=== PATIENT | female | born 1995 | race African-American/Black ===

== ENCOUNTER 2024-08-09 08:16 | Emergency (ER) | payer BC, SELFPAY ==
[2024-08-09 08:22] VITALS: BP 126/87; PULSE 48; PULSE 79; RESP 14; RESP 16; TEMP 36.4; O2SAT 100
--- OUTSIDE RECORDS SUMMARY | 2024-08-09 08:29 | XMS_ITS | Clinical Summary ---
Author Organization [facility] Address [address] [place] [id number] Care Team Providers Care Vacuum Pan Operator Name Role Phone Unavailable Primary Care Provider Unavailabl e Immunizations Immunization Administration Dates Next Due Covid-19, Mrna, Lnp-s, Pf, 30 Mcg/0.3 Ml Dose (P fizer) 11/27/2020,11/06/2020 Social History Tobacco Use Types Packs/Day Years Used Date Smoking Tobacco: Never Assessed Comments Unknown Sex and Gender Information Value Date Recorded Sex Assigned at Not on file Legal Sex Female 2:15 PM CDT Gender Identity Not on file Sexual Orientation Not on file Plan of Treatment Health Maintenance Due Date Last Done Comments Hepatitis C Virus (HCV) Screening 1995 Hepatitis B Immunization (3 of 3 - 3-dose series) 05/22/1996 03/27/1996, 1995 Influenza Immunization (#1) 2023 03/02/2011 SARS-COV-2 Immunization ( season) 2023 11/27/2020, 11/06/2020 Respiratory Syncytial Virus (RSV) Immunization (Adult) (1 - 1-dose 75+ series) 09/16/2070 DTaP/Tdap/Td Immunization Discontinued 2008, 12/15/1999, 01/05/1997, Additional history exists TdaP Immunization Completed 07/30/2008 Human Papillomavirus (HPV) Immunization Discontinued 07/31/2011, 11/27/2008, 07/30/2008 Meningococcal Immunization (ACWY) Completed 12/07/2011, 07/30/2008 Pneumococcal Immunization Combined Aged Out No longer eligible based on patient's age to complete this topic Rotavirus Immunization Aged Out No lo nger eligible based on patient's age to complete this topic
--- OUTSIDE RECORDS SUMMARY | 2024-08-09 08:29 | XMS_ITS | Referral Summary ---
Author Organization [facility] [address] [facility] Address [address] [place] [address] Care Team Providers Care Dry Wall Nailer Name Role Phone Hannah Winn Primary Care Provider [phone] Encounters Date Type Department Care Team Description 06/23/2024 Results Follow-Up [address] [phone] Hannah Winn PA 06/21/2024 3:00 PM CHIEF CONSTRUCTION INSPECTOR Office Visit [address] [address] Hannah Winn PA Encounter for routine gynecological examination with Papanicolaou smear of cervix (Primary Dx); Cervical cancer screening; Screening examination for STD (sexually transmitted disease); BMI 28.0-28.9,adult from Last 3 Months Allergies No known active allergies Medications No known medications Active Problems Problem Noted Date Diagnosed Date Screening examination for ST D (sexually transmitted disease) 07/02/2024 Assessment & Plan (07/02/2024 11:05 PM CDT): STD panel ordered for screening Cervical cancer screening 07/02/2024 Assessment & Plan (07/02/2024 11:06 PM CDT): Pap smear obtained today. Follow-up per current recommendations pending results Encounter for routine gyneco logical examination with Papanicolaou smear of cervix 07/02/2024 Assessment & Plan (07/02/2024 11:06 PM CDT): Encouraged healthy lifestyle, good nutrition and exercise. Encouraged Calcium and Vitamin D and weight bearing exercise for bone health. Reviewed immunizations Reviewed age appropirate screenings. BMI 28.0-28.9,adult 06/21/2024 Assessment & Plan (06/21/2024 3:11 PM CHIEF CONSTRUCTION INSPECTOR): BMI Follow-up includes: Discussed diet and exercising counseling. Resolved Problems Problem Noted Date Diagnosed Date Resolved Date Fatigue 03/20/2024 07/02/2024 Assessment & Plan (03/20/2024 8:49 PM CHIEF CONSTRUCTION INSPECTOR): Probably multifactorial. Check labs and followup to re-evaluate Diabetes mellitus screening 03/20/2024 07/02/2024 Assessment & Plan (03/20/2024 8:49 PM CHIEF CONSTRUCTION INSPECTOR): Check labs Skin lesion of chest wall 04/21/2023 Assessment & Plan (04/21/2023 11:23 PM CHIEF CONSTRUCTION INSPECTOR): Seems to be more cystic type lesion. It seems to be part of the chest wall just under the skin not part of breast tissue. Will start an antibiotic and see if that helps the symptoms resolve. She just had a procedure done with Dr. Mahmood in his on a cephalosporin so will go ahead and continue with this 1. Will see if her symptoms resolve. Recheck in a couple of weeks and has not resolved will need to consider imaging BMI 29.0-29.9,adult 03/15/2023 06/21/19 Assessment & Plan (03/20/2024 4:44 PM CHIEF CONSTRUCTION INSPECTOR): Weight/BMI is in healthy range. Continue healthy lifestyle to maintain. Assessment & Plan (04/14/2023 3:41 PM CHIEF CONSTRUCTION INSPECTOR): Weight/BMI is in healthy range. Continue healthy lifestyle to maintain. Assessment & Plan (03/15/2023 10:12 AM CHIEF CONSTRUCTION INSPECTOR): Weight/BMI is in healthy range. Continue healthy lifestyle to maintain. Nail abnormality 03/15/2023 03/20/2024 Assessment & Plan (03/15/2023 10:13 AM CHIEF CONSTRUCTION INSPECTOR): Patient with persistent nail abnormality. Unsure if it is fungus versus Pseudomonas versus other etiology. Recommend another opinion with Podiatry. Referral to Dr. Sandoval and Guillermo provided. Patient will call and set her own appointment as true referral as needed Annual physical exam 03/15/2023 025 Assessment & Plan (03/20/2024 8:49 PM CHIEF CONSTRUCTION INSPECTOR): Encouraged healthy lifestyle, good nutrition and exercise. Encouraged Calcium and Vitamin D and weight bearing exercise for bone health. Reviewed immunizations Reviewed age appropirate screenings. Will plan a Pap smear with cervical cancer screening in the next few months Assessment & Plan (03/15/2023 10:13 AM CHIEF CONSTRUCTION INSPECTOR): Encouraged healthy lifestyle, good nutrition and exercise. Encouraged Calcium and Vitamin D and weight bearing exercise for bone health. Reviewed immunizations Reviewed age appropirate screenings. Patient would like to have Pap smear done in our office. Will set her up in 3-4 months. 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 Knee laceration, left, initial encounter 10/25/2017 03/15/2023 Overview (10/26/2017): Added automatically from request for surgery [id number] Immunizations Immunization Administration Dates Next Due DTP 01/05/1997, 6,02/18/1996,11/21 DTaP 12/15/1999 HPV, Quadrivalent 07/31/2011,11/27/2008,07/31/19 09 Hep A, Pediatric 02/28/2004,02/12/2003 Hep B, Adolescent or Pediatric 1995 Hep B, Unspecified 03/27/1996 HiB 01/05/1997, 6,02/18/1996,11/21 IPV 12/15/1999 Influenza, Trivalent, Preser vative Free, Intramuscular 03/02/2011 Influenza, Unspecified 03/20/2024,2023(Deferred: Patient Refused),03/15/2023(Deferred: Patient Refused),04/26/2022(Deferred: Patient Refused),04/26/2021(Deferred: Patient Refused) MMR 12/15/1999,11/03/1996 Meningococcal MCV4P (Menactra) 12/07/2011,2008 Polio, Unspecified 01/05/1997, 6,02/18/1996,11/21 Tdap 09/24/2018,07/30/2008 Social History Tobacco Use Types Packs/Day Years Used Date Smoking Tobacco: Never Smokeless Tobacco: Never Alcohol Use Standard Drinks/Week Comments No 0 (1 standard drink = 0.6 oz pur e alcohol) AUDIT-C Answer Date Recorded Q1: How often do you have a drink containing alcohol? Never 03/20/2024 Q2: How many drinks containi ng alcohol do you have on a typical day when you are drinking? Patient does not drink Q3: How often do you have si x or more drinks on one occasion? Never 03/20/2024 PHQ-2 Answer Date Recorded PHQ-2 Total Score (If total score is 3 or more points, staff should administer the PHQ-9) 0 06/21/2024 Personal Safety Answer Date Recorded Have you ever been in or are you currently in a harmful physical or emotional relationship or is someone making you feel afraid or unsafe? Denies 07/13/2022 Comments No Sex and Gender Information Value Date Recorded Sex Assigned at Not on file Legal Sex Female 9:39 PM CHIEF CONSTRUCTION INSPECTOR Gender Identity Not on file Sexual Orientation Not on file Last Filed Vital Signs Vital Sign Reading Time Taken Comments Blood Pressure 102/72 06/21/2024 3:06 PM CHIEF CONSTRUCTION INSPECTOR Pulse 54 06/21/2024 3:06 PM CHIEF CONSTRUCTION INSPECTOR Temperature 37.2 C (99 F) 06/21/2024 3:06 PM CHIEF CONSTRUCTION INSPECTOR Respiratory Rate 18 07/13/2022 7:57 PM CDT Oxygen Saturation 99% 06/21/2024 3:06 PM CHIEF CONSTRUCTION INSPECTOR Inhaled Oxygen Concentration - - Weight 80.5 kg (177 lb 6.4 oz) 06/21/2024 3:06 P M CHIEF CONSTRUCTION INSPECTOR Height 167.6 cm (5' 6 ) 06/21/2024 3:06 PM CHIEF CONSTRUCTION INSPECTOR Body Mass Index 28.63 06/21/2024 3:06 PM CHIEF CONSTRUCTION INSPECTOR Plan of Treatment Not on file Procedures Procedure Name Priority Date/Time Associated Diagnosis Comments SURESWAB(R), CT/NG, T VAGINALIS Routine 06/21/2024 3:56 PM CHIEF CONSTRUCTION INSPECTOR Screening examination for STD (sexually transmitted disease) PAP, REFLEX HPV Routine 06/21/2024 3:54 PM CHIEF CONSTRUCTION INSPECTOR Cervical cancer screening from Last 3 Months Results * SURESWAB(R), CT/NG, T VAGINALIS (06/21/2024 3:56 PM CHIEF CONSTRUCTION INSPECTOR) Pathologist [facility] C. trachomatis RNA NOT DETECTED NOT DETECTED [facility] [place] N. gonorrhoeae RNA NOT DETECTED NOT DETECTED [facility] [place] Comment [facility] [place] Comment: The analytical performance characteristics of this assay, when used to test SurePath(TM) specimens have been determined by [employer]. The modifications have not been cleared or approved by the FDA. This assay has been validated pursuant to the CLIA regulations and is used for clinical purposes. For additional information, please refer to https://[employer]/faq/WSJ694 (This link is being provided for information/ educational purposes only.) Trichomonas vaginalis NOT DETECTED NOT DETECTED [facility] [place] Comment: For additional information, please refer to http://[employer] faq/Trichomonastma (This link is being provided for informational/ educational purposes only.) Endocervical/vag inal 06/21/2024 3:56 PM CHIEF CONSTRUCTION INSPECTOR 06/23/2024 4:31 AM CHIEF CONSTRUCTION INSPECTOR Hannah [facility] BLOOD ORDERABLES Final Result [facility] [address] [place] [address] * Pap, reflex HPV (06/21/2024 3:54 PM CHIEF CONSTRUCTION INSPECTOR) CLINICAL INFORMATION: Carlyn AlexSimin Shaw Comment:CERVICAL CANCER SCRE ENING LMP Carlyn AlexSimin Shaw Comment:06/01/2024 Previous Pap Carlyn Jaime Shaw Comment:NONE GIVEN Prev. Bx Carlyn Shaw Comment:NONE GIVEN SOURCE: Carlyn Shaw Comment:Cervix, Endocervix Pap, specimen adequacy Carlyn Shaw Comment: Satisfactory for evaluation. Endocervical/transformation zone component present. HPV interp Carlyn Shaw Comment: Cytology Results: Negative for intraepithelial lesion or malignancy. Infection: Carlyn Shaw Comment: Shift in vaginal stefani suggestive of bacterial vaginosis. COMMENTS Carlyn AlexSimin Shaw Comment: This Pap test has been evaluated with computer assisted technology. Technical Support Engineer Sergey Barnes Comment: MVB, CT(ASCP) CT Screening Location: [place] [address] [address] [id number] Comment Carlyn AlexSimin Shaw Comment: EXPLANATORY NOTE: The Pap is a screening test for cervical cancer. It is not a diagnostic test and is subject to false negative and false positive results. It is most reliable when a satisfactory sample, regularly obtained, is submitted with relevant clinical findings and history, and when the Pap result is evaluated along with historic and current clinical information. Thin prep 06/21/2024 3:54 PM CHIEF CONSTRUCTION INSPECTOR 06/23/2024 5:12 AM CHIEF CONSTRUCTION INSPECTOR Hannah [facility] CYTOLOGY ORDERABLES nal Result [facility] [address] [place] [address] from Last 3 Months Insurance [facility] FED[employer]AL Advance Directives For more information, please contact: [phone] * Full Code (Latest Code Status on File) Date Activated Date Inactivated Comments 10/26/2017 4:03 PM 10/28/2017 7:09 PM * Full Code Date Activated Date Inactivated Comments 10/26/2017 2:48 AM 10/26/2017 4:03 PM Care Teams Dry Wall Nailer Relationship Specialty Start Date End Date Hannah Winn PA [address] [place] [address] PCP - General Internal Medicine 03/15/23
--- OUTSIDE RECORDS SUMMARY | 2024-08-09 08:29 | XMS_ITS | Clinical Summary ---
Author Organization [facility] Address [address] [place] [address] Phone Care Team Providers Care Senior Research Fellow Name Role Phone Unavailable Primary Care Provider Unavailabl e Social History Tobacco Use Types Packs/Day Years Used Date Smoking Tobacco: Never Assessed Comments Unknown Sex and Gender Information Value Date Recorded Sex Assigned at Not on file Legal Sex Female 1:29 PM CDT Gender Identity Not on file Sexual Orientation Not on file Plan of Treatment Health Maintenance Due Date Last Done Comments DTAP/TDAP/TD VACCINES (1 - Tdap) 09/16/2014 HEPATITIS B VACCINES (1 of 3 - 19+ 3-dose series) 09/16/2014 CERVICAL CANCER SCREENING 09/16/2016 HPV/Cotest (21-29) 09/16/2016 PAP SMEAR 09/16/2016 PAP SMEAR 09/16/2016 INFLUENZA VACCINE (#1) 2023 HPV VACCINES Aged Out No longer eligi ble based on patient's age to complete this topic Insurance [employer]
--- OUTSIDE RECORDS SUMMARY | 2024-08-09 08:29 | XMS_ITS | Clinical Summary ---
Author Organization [facility] Address [address] [place] [address] Care Team Providers Care Silk Washing Machine Operator Name Role Phone Hannah Winn Primary Care Provider [phone] Allergies No known active allergies Medications ondansetron 4 MG disintegrating tablet Take 1 tablet (4 mg total) by mouth every 8 (eight) hours as needed for Nausea. 16 tablet 7 Active Social History Tobacco Use Types Packs/Day Years Used Date Smoking Tobacco: Never Passive Smoke Exposure: Never Smokeless Tobacco: Never Tobacco Cessation:Counseling Given: Not Answered Alcohol Use Standard Drinks/Week Comments No 0 (1 standard drink = 0.6 oz pur e alcohol) Comments No Sex and Gender Information Value Date Recorded Sex Assigned at Not on file Legal Sex Female 5:55 PM CHARRER Gender Identity Not on file Sexual Orientation Not on file Last Filed Vital Signs Vital Sign Reading Time Taken Comments Blood Pressure 103/74 03/18/2024 8:29 AM CHARRER Pulse 73 03/18/2024 8:29 AM CHARRER Temperature 36.4 C (97.5 F) 03/18/2024 8:29 AM CHARRER Respiratory Rate 18 03/18/2024 8:29 AM CHARRER Oxygen Saturation 100% 03/18/2024 8:29 AM CHARRER Inhaled Oxygen Concentration - - Weight 79.8 kg (176 lb) 03/18/2024 8:29 AM CHARRER Height 167.6 cm (5' 6 ) 03/18/2024 8:29 AM CHARRER Body Mass Index 28.41 03/18/2024 8:29 AM CHARRER Plan of Treatment Health Maintenance Due Date Last Done Comments Cervical Cancer Screening Pap Smear (Age 21 to 29) Every 3 Years 1995 Cervical Cancer Screening 1995 Hepatitis B Vaccines (3 of 3 - 3-dose series) 05/22/1996 03/27/1996, 1995 Annual Physical 09/16/1998 Hepatitis C 09/16/2013 COVID-19 Vaccine (3 - 2023- season) 2023 11/27/2020, 11/06/2020 DTaP, Tdap and Td Vaccines (8 - Td or Tdap) 09/24/2028 09/24/2018, 07/30/2008, 12/15/1999, Additional history exists HPV Vaccines Completed 07/31/2011, 07/2008, 07/30/2008 Meningococcal Vaccine Completed 12/07/2011, 009 Meningococcal B Vaccine Aged Out No l onger eligible based on patient's age to complete this topic Pneumococcal Vaccine: Pediatrics (0 to 5 Years) and At-Risk Patients (6 to 49 Years) Aged Out No longer eligible based on patient's age to complete this topic RSV Immunizations Under 20 Months Aged Out No longer eligible based on patient's age to complete this topic Insurance Care Teams Silk Washing Machine Operator Relationship Specialty Start Date End Date Hannah Winn PA [address] [place] [address] PCP - General PHYSICIAN DELIVERY TECH 03/18/24
--- OUTSIDE RECORDS SUMMARY | 2024-08-09 08:29 | XMS_ITS | Clinical Summary ---
Author Organization [facility] [address] [facility] Address [address] [place] [address] Care Team Providers Care Commissioning Engineer Name Role Phone Hannah Winn Primary Care Provider +1- [phone] Allergies No known active allergies Medications No [...] 06/21/2024 Assessment & Plan (06/21/2024 3:11 PM DEPARTMENTAL SECRETARY): BMI Follow-up includes: Discussed diet and exercising counseling. Resolved Problems Problem Noted Date Diagnosed Date Resolved Date Fatigue 03/20/2024 07/02/2024 Assessment & Plan (03/20/2024 8:49 PM DEPARTMENTAL SECRETARY): Probably multifactorial. Check labs and followup to re-evaluate Diabetes mellitus screening 03/20/2024 07/02/2024 Assessment & Plan (03/20/2024 8:49 PM DEPARTMENTAL SECRETARY): Check labs Skin lesion of chest wall 04/21/2023 Assessment & Plan (04/21/2023 11:23 PM DEPARTMENTAL SECRETARY): Seems to be more cystic type lesion. [...] to consider imaging BMI 29.0-29.9,adult 03/15/2023 06/21/19 25 Assessment & Plan (03/20/2024 4:44 PM DEPARTMENTAL SECRETARY): Weight/BMI is in healthy range. Continue healthy lifestyle to maintain. Assessment & Plan (04/14/2023 3:41 PM DEPARTMENTAL SECRETARY): Weight/BMI is in healthy range. Continue healthy lifestyle to maintain. Assessment & Plan (03/15/2023 10:12 AM DEPARTMENTAL SECRETARY): Weight/BMI is in healthy range. Continue healthy lifestyle to maintain. Nail abnormality 03/15/2023 03/20/2024 Assessment & Plan (03/15/2023 10:13 AM DEPARTMENTAL SECRETARY): Patient with persistent nail abnormality. Unsure if it is fungus versus Pseudomonas versus other etiology. Recommend another opinion with Podiatry. Referral to Dr. Sandoval and Guillermo provided. Patient will call and set her own appointment as true referral as needed Annual physical exam 03/15/2023 025 Assessment & Plan (03/20/2024 8:49 PM DEPARTMENTAL SECRETARY): Encouraged healthy lifestyle, good nutrition and exercise. Encouraged Calcium and Vitamin D and weight bearing exercise for bone health. Reviewed immunizations Reviewed age appropirate screenings. Will plan a Pap smear with cervical cancer screening in the next few months Assessment & Plan (03/15/2023 10:13 AM DEPARTMENTAL SECRETARY): Encouraged healthy lifestyle, good nutrition and exercise. Encouraged Calcium and Vitamin D and weight bearing exercise for bone health. Reviewed immunizations Reviewed age appropirate screenings. Patient would like to have Pap smear done in our office. Will set her up in 3-4 months. 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 Knee laceration, left, initial encounter 10/25/2017 03/15/2023 Overview (10/26/2017): Added automatically from request for surgery [id number] Encounters Date Type Department Care Team Description 06/23/2024 Results Follow-Up [address] [place] [phone] Hannah Winn PA 06/21/2024 3:00 PM DEPARTMENTAL SECRETARY Office Visit [address] [place] [phone] Hannah Winn PA Encounter for routine gynecological examination with Papanicolaou smear of cervix (Primary Dx); Cervical cancer screening; Screening examination for STD (sexually transmitted disease); BMI 28.0-28.9,adult from Last 3 Months Immunizations Immunization Administration Dates Next Due DTP [...] 12/07/2011,2008 Polio, Unspecified 01/05/1997, 6,02/18/1996,11/21 Tdap 09/24/2018,07/30/2008 Surgical History Surgery Date Site/Laterality Comments BREAST RECONSTRUCTION Bilateral KNEE SURGERY Family History Medical History Relation Name Comments Diabetes Father Hyperlipidemia Father Diabetes Mother Fibromyalgia Mother Hyperlipidemia Mother Breast cancer Mother's Sister Stomach cancer Mother's Sister Relation Name Status Comments Father Alive Mother Alive Mother's Sister Social History Tobacco Use Types Packs/Day Years [...] on file Legal Sex Female 9:39 PM DEPARTMENTAL SECRETARY Gender Identity Not on file Sexual Orientation Not on file Obstetrics History Last Filed Vital Signs Vital Sign Reading Time Taken Comments Blood Pressure 102/72 06/21/2024 3:06 PM DEPARTMENTAL SECRETARY Pulse 54 06/21/2024 3:06 PM DEPARTMENTAL SECRETARY Temperature 37.2 C (99 F) 06/21/2024 3:06 PM DEPARTMENTAL SECRETARY Respiratory Rate 18 07/13/2022 7:57 PM CDT Oxygen Saturation 99% 06/21/2024 3:06 PM DEPARTMENTAL SECRETARY Inhaled Oxygen Concentration - - Weight 80.5 kg (177 lb 6.4 oz) 06/21/2024 3:06 P M DEPARTMENTAL SECRETARY Height 167.6 cm (5' 6 ) 06/21/2024 3:06 PM DEPARTMENTAL SECRETARY Body Mass Index 28.63 06/21/2024 3:06 PM DEPARTMENTAL SECRETARY Plan of Treatment Health Maintenance Due Date Last Done Comments Hepatitis C Screening 1995 Varicella Vaccines (1 of 2 - 13+ 2-dose series) 09/16/2008 Covid-19 Vaccine ( - 2023- season) 2023 11/27/2020, 11/06/2020 Depression Screening 06/21/2025 06/21/2024, 03/20/2024, 04/14/2023, Additional history exists Regular Well Visit/Exam 18-64 06/21/2025 06/21/2024, 03/20/2024, 03/15/2023 Cervical Cancer Screening 06/21/2027 06/21/2024 DTaP/Tdap/Td Vaccine (8 - Td or Tdap) 09/24/2028 09/24/2018, 07/30/2008, 12/15/1999, Additional history exists Hepatitis B Screening Completed 03/27/1996, 996 HPV Vaccines Completed 07/31/2011, 07/2008, 07/30/2008 Influenza Vaccine Completed 03/20/2024, 03/02/2011 Pneumococcal vaccine <65 Aged Out No longer eligible based on patient's age to complete this topic Procedures Procedure Name Priority Date/Time Associated Diagnosis Comments SURESWAB(R), CT/NG, T VAGINALIS Routine 06/21/2024 3:56 PM DEPARTMENTAL SECRETARY Screening examination for STD (sexually transmitted disease) PAP, REFLEX HPV Routine 06/21/2024 3:54 PM DEPARTMENTAL SECRETARY Cervical cancer screening from Last 3 Months Results * SURESWAB(R), CT/NG, T VAGINALIS (06/21/2024 3:56 PM DEPARTMENTAL SECRETARY) C. trachomatis RNA NOT DETECTED NOT DETECTED [facility] [place] N. gonorrhoeae RNA NOT DETECTED NOT DETECTED [facility] [place] Comment [facility] [place] Comment: The analytical performance characteristics of this assay, when used to test SurePath(TM) specimens have been determined by [facility]. The modifications have not been cleared or approved by the FDA. This assay has been validated pursuant to the CLIA regulations and is used for clinical purposes. For additional information, please refer to https://[employer]Effect.[facility]/faq/UJS573 (This link is being provided for information/ educational purposes only.) Trichomonas vaginalis NOT DETECTED NOT DETECTED [facility] [place] Comment: For additional information, please refer to http://[employer]/ faq/Trichomonastma (This link is being provided for informational/ educational purposes only.) Endocervical/vag inal 06/21/2024 3:56 PM DEPARTMENTAL SECRETARY 06/23/2024 4:31 AM DEPARTMENTAL SECRETARY Hannah [facility] BLOOD ORDERABLES Final Result [facility] [address] [place] [address] * Pap, reflex HPV (06/21/2024 3:54 PM DEPARTMENTAL SECRETARY) CLINICAL INFORMATION: Carlyn Shaw Comment:CERVICAL CANCER SCRE ENING LMP Carlyn Shaw Comment:06/01/2024 Previous Pap Carlyn Shaw Comment:NONE GIVEN Prev. Bx Carlyn Shaw Comment:NONE GIVEN SOURCE: Carlyn Shaw Comment:Cervix, Endocervix Pap, specimen adequacy Carlyn Shaw Comment: Satisfactory for evaluation. Endocervical/transformation zone component present. HPV interp Carlyn Shaw Comment: Cytology Results: Negative for intraepithelial lesion or malignancy. Infection: Carlyn Shaw Comment: Shift in vaginal stefani suggestive of bacterial vaginosis. COMMENTS Carlyn Shaw Comment: This Pap test has been evaluated with computer assisted technology. Turkish Line Attendant Sergey Barnes Comment: MVB, CT(ASCP) CT Screening Location: [facility] [address] [address] [address] Comment [facility] Comment: EXPLANATORY NOTE: The Pap is [...] clinical information. Thin prep 06/21/2024 3:54 PM DEPARTMENTAL SECRETARY 06/23/2024 5:12 AM DEPARTMENTAL SECRETARY us Hannah [facility] CYTOLOGY ORDERABLES nal Result [facility] [address] [address] [place] [address] from Last 3 Months Insurance [facility] FEDERAL Advance Directives For more information, please contact: [phone] * Full Code (Latest Code Status on File) Date Activated Date Inactivated Comments 10/26/2017 4:03 PM 10/28/2017 7:09 PM * Full Code Date Activated Date Inactivated Comments 10/26/2017 2:48 AM 10/26/2017 4:03 PM Care Teams Commissioning Engineer Relationship Specialty Start Date End Date Hannah Winn PA [address] [place] [address] PCP - General Internal Medicine 03/15/23
--- OUTSIDE RECORDS SUMMARY | 2024-08-09 08:29 | XMS_ITS | Patient Health Record ---
Author Organization [address] [facility] Address [address] [place] [address] Care Team Providers Care Product Merchandiser Name Role Phone UNKNOWN, UNKNOWN Primary Care Provider Beti Kinney Unavailable [phone] Allergies No Known Allergies Reason For Referral No Information Social History Tobacco Use: Social History Observation Description Date Details (start date - stop date) Never Smoker NA - NA Tobacco Use/Smoking Question Answer Notes Are you a nonsmoker Plan Of Treatment No Information Insurance Providers Payer Name Payer Address Payer Phone Subscriber Number Group Number Insured Name Patient Relationship to Insured Coverage Start Date Coverage End Date [facility] [address] [place] [address] [phone] [id number] [employer] [place] Self - patient is the insured Medical (General) History Medical History History ICD Code no pmh Surgical History Surgery Date(Month/Year) breast reduction knee surgery cyst removal toe
--- OUTSIDE RECORDS SUMMARY | 2024-08-09 08:29 | XMS_ITS | Encounter Summary ---
Author Organization [facility] Address [address] [place] [address] Care Team Providers Care Tool Checker Name Role Phone Hannah Winn Primary Care Provider +1- [phone] Encounter Details Date Type Department Care Team (Late st Contact Info) Description 06/23/2024 Results Follow-Up [facility] Family Medicine [address] [facility] [address] [place] [address] Hannah Winn PA [address] [facility] [address] [place] [address] Social History Tobacco Use Types Packs/Day Years [...] on file Legal Sex Female 9:39 PM CUT OFF SAWYER LOG Gender Identity Not on file Sexual Orientation Not on file documented as of this encounter Plan of Treatment Not on file documented as of this encounter Visit Diagnoses Not on filedocumented in this encounter Care Teams Tool Checker Relationship Specialty Start Date End Date Hannah Winn PA [address] [place] [address] PCP - General Internal Medicine 03/15/23 documented as of this encounter
--- NOTE | 2024-08-09 09:09 | ED.GENADULT ---
HPI - General Adult General Chief complaint: Headache Stated complaint: headache, body aches Time Seen by Provider: 08/09/24 09:01 History of Present Illness HPI narrative: 28-year-old female with no significant past medical history presents to the emergency department for diffuse body aches and headache for 1 day. Patient states the headache is throughout her whole head. She is not taking anything for her symptoms. She denies head injury trauma, fever, nuchal rigidity, cough or congestion, otalgia, sore throat, abdominal pain, N/V/D, dysuria or hematuria. Denies recent sick contacts. Denies possibility of . Related Data Allergies Allergy/AdvReac Type Severity Reaction Status Date / Time No Known Drug Allergies Allergy Unknown unknown Verified 08/09/24 09:17 Review of Systems Review of Systems: All systems reviewed & are unremarkable except as noted in HPI and below PMFSH Past Medical History Medical History Vaginal delivery Surgical History Surgical History H/O knee surgery H/O bilateral breast reduction surgery Family History Family History Father Diabetes mellitus Hypertension Mother Diabetes mellitus Hypertension Other Family history of malignant neoplasm of breast Social History Social History Smoking status: Never smoker Alcohol intake: never Exam Narrative: GENERAL: Well-appearing, well-nourished, and in no acute distress. HEAD: Normocephalic, atraumatic. EYES: PERRLA and EOMI. ENT: Nares clear, no rhinorrhea or epistaxis. Mucous membranes moist. Bilateral TMs are munguia nonbulging with normal canals. Posterior pharynx erythema or edema, no tonsillar hypertrophy or exudates NECK: Supple. No nuchal rigidity CHEST: Clear to auscultation. No respiratory distress. HEART: Regular rate and rhythm. No murmur heard. Normal peripheral pulses. ABDOMEN: Soft, nontender, nondistended, normal active bowel sounds. EXTREMITIES: Normal range of motion. No edema. SKIN: Warm, dry, no rash. NEURO: No focal deficits. Alert and oriented x4. Moving all extremities spontaneously. Cranial nerves 2-12 grossly intact Course Vital Signs Vital signs: Vital Signs Temperature 97.5 F L 08/09/24 08:22 Pulse Rate 79 08/09/24 08:22 Respiratory Rate 16 08/09/24 08:22 Blood Pressure 126/87 08/09/24 08:22 Pulse Oximetry 100 08/09/24 08:22 Oxygen Delivery Room Air 08/09/24 08:22 Temperature 97.5 F L 08/09/24 08:22 Pulse Rate 60 08/09/24 10:43 Respiratory Rate 16 08/09/24 10:43 Blood Pressure 106/68 08/09/24 10:43 Pulse Oximetry 100 08/09/24 10:43 Oxygen Delivery Room Air 08/09/24 08:22 Medical Decision Making MDM Narrative Medical decision making narrative: 28-year-old female with no significant past medical history presents to emergency department for generalized body aches and headache for 1 day. Triage vitals are stable. Patient is afebrile and nontoxic appearing resting comfortably in exam bed. No focal or lateralizing deficits on exam. No nuchal rigidity. COVID, flu RSV are negative. Patient's presentation is consistent with viral syndrome. She received ibuprofen with improvement in symptoms. Advised rest, increase fluid intake, Tylenol/ibuprofen [id number] and follow-up with her PCP. Discussed strict ED return precautions. She and her mother are agreeable with the plan verbalized understanding. Discharged in stable condition. Vital Signs Vital Signs: Vital Signs Temperature 97.5 F L 08/09/24 08:22 Pulse Rate 79 08/09/24 08:22 Respiratory Rate 16 08/09/24 08:22 Blood Pressure 126/87 08/09/24 08:22 Pulse Oximetry 100 08/09/24 08:22 Oxygen Delivery Room Air 08/09/24 08:22 Temperature 97.5 F L 08/09/24 08:22 Pulse Rate 60 08/09/24 10:43 Respiratory Rate 16 08/09/24 10:43 Blood Pressure 106/68 08/09/24 10:43 Pulse Oximetry 100 08/09/24 10:43 Oxygen Delivery Room Air 08/09/24 08:22 Lab Data Labs: Lab Results 08/09/24 Range/Units 09:17 Influenza A (RT-PCR) Negative (Negative) Influenza B (RT-PCR) Negative (Negative) RSV (RT-PCR) Negative (Negative) SARS-CoV-2 RNA (RT-PCR) Negative (Negative) Discharge Plan Discharge Clinical Impression: Acute viral syndrome Patient Disposition: Home Condition: Stable Instructions: Antibiotic Form, Viral Syndrome (ED) Additional Instructions: You were evaluated in the emergency department for body aches and headache. Your exam is reassuring. Your COVID, flu and RSV tests are negative. Please take 1000 mg of Tylenol every 6 hours and 800 mg of ibuprofen every 6 hours as needed for headache and body aches. Follow-up closely with your primary care provider. Return to the emergency department if you develop fever of 100.4 or greater, you are unable to tolerate food or fluids, you develops worsening pain or other concerning symptoms. Please drink plenty of fluids and rest. Patient Language: Italian Follow-up/Referrals: UNKNOWN,DOCTOR [Primary Care Provider] - Stand Alone Forms: Work/School Release IP
[2024-08-09 09:15] VITALS: BP 119/81; PULSE 83; RESP 16; O2SAT 100
[2024-08-09] MEDS: IBUPROFEN 400 MG TABLET 800 MG PO (09:18)
[2024-08-09 10:00] LABS: Influenza A QL RT-PCR Negative (Negative); Influenza B QL RT-PCR Negative (Negative); RSV RNA, RT-PCR Negative (Negative); SARS-CoV-2 RNA PCR Negative (Negative)
--- OUTSIDE RECORDS SUMMARY | 2024-08-09 10:03 | XMS_ITS | Referral Summary ---
Author Organization [facility] [address] [facility] Address [address] [place] [address] Care Team Providers Care Internal Security Manager Name Role Phone Hannah Winn Primary Care Provider +1- [phone] Encounters Date Type Department Care Team Description 06/23/2024 Results Follow-Up [address] [phone] Hannah Winn PA 06/21/2024 3:00 PM FORENSICS ANALYST Office Visit [address] [address] Hannah Winn PA Encounter for [...] 06/21/2024 Assessment & Plan (06/21/2024 3:11 PM FORENSICS ANALYST): BMI Follow-up includes: Discussed diet and exercising counseling. Resolved Problems Problem Noted Date Diagnosed Date Resolved Date Fatigue 03/20/2024 07/02/2024 Assessment & Plan (03/20/2024 8:49 PM FORENSICS ANALYST): Probably multifactorial. Check labs and followup to re-evaluate Diabetes mellitus screening 03/20/2024 07/02/2024 Assessment & Plan (03/20/2024 8:49 PM FORENSICS ANALYST): Check labs Skin lesion of chest wall 04/21/2023 Assessment & Plan (04/21/2023 11:23 PM FORENSICS ANALYST): Seems to be more cystic type lesion. [...] 06/21/19 Assessment & Plan (03/20/2024 4:44 PM FORENSICS ANALYST): Weight/BMI is in healthy range. Continue healthy lifestyle to maintain. Assessment & Plan (04/14/2023 3:41 PM FORENSICS ANALYST): Weight/BMI is in healthy range. Continue healthy lifestyle to maintain. Assessment & Plan (03/15/2023 10:12 AM FORENSICS ANALYST): Weight/BMI is in healthy range. Continue healthy lifestyle to maintain. Nail abnormality 03/15/2023 03/20/2024 Assessment & Plan (03/15/2023 10:13 AM FORENSICS ANALYST): Patient with persistent nail abnormality. Unsure if it is fungus versus Pseudomonas versus other etiology. Recommend another opinion with Podiatry. Referral to Dr. Sandoval and Guillermo provided. Patient will call and set her own appointment as true referral as needed Annual physical exam 03/15/2023 025 Assessment & Plan (03/20/2024 8:49 PM FORENSICS ANALYST): Encouraged healthy lifestyle, good nutrition and exercise. Encouraged Calcium and Vitamin D and weight bearing exercise for bone health. Reviewed immunizations Reviewed age appropirate screenings. Will plan a Pap smear with cervical cancer screening in the next few months Assessment & Plan (03/15/2023 10:13 AM FORENSICS ANALYST): Encouraged healthy lifestyle, good nutrition and exercise. Encouraged Calcium and Vitamin D and weight bearing exercise for bone health. Reviewed immunizations Reviewed age appropirate screenings. Patient would like to have Pap smear done in our office. Will set her up in 3-4 months. 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 Knee laceration, left, initial encounter 10/25/2017 03/15/2023 Overview (10/26/2017): Added automatically from request for surgery [id number] Immunizations Immunization Administration Dates Next Due DTP [...] on file Legal Sex Female 9:39 PM FORENSICS ANALYST Gender Identity Not on file Sexual Orientation Not on file Last Filed Vital Signs Vital Sign Reading Time Taken Comments Blood Pressure 102/72 06/21/2024 3:06 PM FORENSICS ANALYST Pulse 54 06/21/2024 3:06 PM FORENSICS ANALYST Temperature 37.2 C (99 F) 06/21/2024 3:06 PM FORENSICS ANALYST Respiratory Rate 18 07/13/2022 7:57 PM CDT Oxygen Saturation 99% 06/21/2024 3:06 PM FORENSICS ANALYST Inhaled Oxygen Concentration - - Weight 80.5 kg (177 lb 6.4 oz) 06/21/2024 3:06 P M FORENSICS ANALYST Height 167.6 cm (5' 6 ) 06/21/2024 3:06 PM FORENSICS ANALYST Body Mass Index 28.63 06/21/2024 3:06 PM FORENSICS ANALYST Plan of Treatment Not on file Procedures Procedure Name Priority Date/Time Associated Diagnosis Comments SURESWAB(R), CT/NG, T VAGINALIS Routine 06/21/2024 3:56 PM FORENSICS ANALYST Screening examination for STD (sexually transmitted disease) PAP, REFLEX HPV Routine 06/21/2024 3:54 PM FORENSICS ANALYST Cervical cancer screening from Last 3 Months Results * SURESWAB(R), CT/NG, T VAGINALIS (06/21/2024 3:56 PM FORENSICS ANALYST) Pathologist [facility] C. trachomatis RNA NOT DETECTED NOT DETECTED [facility] [place] N. gonorrhoeae RNA NOT DETECTED NOT DETECTED [facility] Comment [facility] Comment: The analytical performance characteristics of this assay, when used to test SurePath(TM) specimens have been determined by [facility]. The modifications have not been cleared or approved by the FDA. This assay has been validated pursuant to the CLIA regulations and is used for clinical purposes. For additional information, please refer to https://[employer]/faq/MZK812 (This link is being provided for information/ educational purposes only.) Trichomonas vaginalis NOT DETECTED NOT DETECTED [facility] [place] Comment: For additional information, please refer to http://[employer]/ faq/Trichomonastma (This link is being provided for informational/ educational purposes only.) Endocervical/vag inal 06/21/2024 3:56 PM FORENSICS ANALYST 06/23/2024 4:31 AM FORENSICS ANALYST Hannah [facility] BLOOD ORDERABLES Final Result [facility] [address] [place] [address] * Pap, reflex HPV (06/21/2024 3:54 PM FORENSICS ANALYST) CLINICAL INFORMATION: Carlyn AlexSimin Shaw Comment:CERVICAL CANCER [...] has been evaluated with computer assisted technology. Simulation Engineer Sergey Barnes Comment: MVB, CT(ASCP) CT Screening Location: [place] [address] [address] [address] Comment Carlyn AlexSimin Shaw Comment: EXPLANATORY NOTE: [...] clinical information. Thin prep 06/21/2024 3:54 PM FORENSICS ANALYST 06/23/2024 5:12 AM FORENSICS ANALYST Hannah [facility] CYTOLOGY ORDERABLES nal Result [facility] [place] [address] [place] [address] from Last 3 Months Insurance [facility] FEDERAL Advance Directives For more information, please contact: [phone] * Full Code (Latest Code Status on File) Date Activated Date Inactivated Comments 10/26/2017 4:03 PM 10/28/2017 7:09 PM * Full Code Date Activated Date Inactivated Comments 10/26/2017 2:48 AM 10/26/2017 4:03 PM Care Teams Internal Security Manager Relationship Specialty Start Date End Date Hannah Winn PA [address] [place] [address] PCP - General Internal Medicine 03/15/23
--- OUTSIDE RECORDS SUMMARY | 2024-08-09 10:03 | XMS_ITS | Encounter Summary ---
Author Organization [facility] Address [address] [place] [address] Care Team Providers Care Welder Oxyhydrogen Name Role Phone Hannah Winn Primary Care Provider +1- [phone] Encounter Details Date Type Department Care Team (Late st Contact Info) Description 06/23/2024 Results Follow-Up [facility] Family Medicine [address] [facility] [address] [place] [address] Hannah Winn PA [address] [facility] [address] [place] [address] Social History Tobacco Use Types [...] on file Legal Sex Female 9:39 PM GRAIN OPERATIONS MANAGER Gender Identity Not on file Sexual Orientation Not on file documented as of this encounter Plan of Treatment Not on file documented as of this encounter Visit Diagnoses Not on filedocumented in this encounter Care Teams Welder Oxyhydrogen Relationship Specialty Start Date End Date Hannah Winn PA [address] [place] [address] PCP - General Internal Medicine 03/15/23 documented as of this encounter
--- OUTSIDE RECORDS SUMMARY | 2024-08-09 10:03 | XMS_ITS | Clinical Summary ---
Author Organization [facility] Address [address] [place] [address] Phone Care Team Providers Care Post Office Manager Name Role Phone Unavailable Primary Care Provider [...] patient's age to complete this topic Insurance [facility] MEDICAID
--- OUTSIDE RECORDS SUMMARY | 2024-08-09 10:03 | XMS_ITS | Clinical Summary ---
Author Organization [facility] Address [address] [place] [address] Care Team Providers Care Cotton Picking Machine Operator Name Role Phone Hannah Winn Primary Care Provider [phone] Allergies No known active allergies Medications ondansetron [...] on file Legal Sex Female 5:55 PM HAND PAINT MIXER Gender Identity Not on file Sexual Orientation Not on file Last Filed Vital Signs Vital Sign Reading Time Taken Comments Blood Pressure 103/74 03/18/2024 8:29 AM HAND PAINT MIXER Pulse 73 03/18/2024 8:29 AM HAND PAINT MIXER Temperature 36.4 C (97.5 F) 03/18/2024 8:29 AM HAND PAINT MIXER Respiratory Rate 18 03/18/2024 8:29 AM HAND PAINT MIXER Oxygen Saturation 100% 03/18/2024 8:29 AM HAND PAINT MIXER Inhaled Oxygen Concentration - - Weight 79.8 kg (176 lb) 03/18/2024 8:29 AM HAND PAINT MIXER Height 167.6 cm (5' 6 ) 03/18/2024 8:29 AM HAND PAINT MIXER Body Mass Index 28.41 03/18/2024 8:29 AM HAND PAINT MIXER Plan of Treatment Health Maintenance Due Date [...] to complete this topic Insurance Care Teams Cotton Picking Machine Operator Relationship Specialty Start Date End Date Hannah Winn PA [address] [facility] [address] [place] [address] PCP - General PHYSICIAN MATERIALS PLANNER 03/18/24
--- OUTSIDE RECORDS SUMMARY | 2024-08-09 10:03 | XMS_ITS | Clinical Summary ---
Author Organization [facility] [address] [facility] Address [address] [place] [address] Care Team Providers Care Kaitara Taraka Name Role Phone Hannah Winn Primary Care Provider [phone] Allergies No known active allergies Medications No [...] 06/21/2024 Assessment & Plan (06/21/2024 3:11 PM WHOLESALE BUYER): BMI Follow-up includes: Discussed diet and exercising counseling. Resolved Problems Problem Noted Date Diagnosed Date Resolved Date Fatigue 03/20/2024 07/02/2024 Assessment & Plan (03/20/2024 8:49 PM WHOLESALE BUYER): Probably multifactorial. Check labs and followup to re-evaluate Diabetes mellitus screening 03/20/2024 07/02/2024 Assessment & Plan (03/20/2024 8:49 PM WHOLESALE BUYER): Check labs Skin lesion of chest wall 04/21/2023 Assessment & Plan (04/21/2023 11:23 PM WHOLESALE BUYER): Seems to be more cystic type lesion. [...] 25 Assessment & Plan (03/20/2024 4:44 PM WHOLESALE BUYER): Weight/BMI is in healthy range. Continue healthy lifestyle to maintain. Assessment & Plan (04/14/2023 3:41 PM WHOLESALE BUYER): Weight/BMI is in healthy range. Continue healthy lifestyle to maintain. Assessment & Plan (03/15/2023 10:12 AM WHOLESALE BUYER): Weight/BMI is in healthy range. Continue healthy lifestyle to maintain. Nail abnormality 03/15/2023 03/20/2024 Assessment & Plan (03/15/2023 10:13 AM WHOLESALE BUYER): Patient with persistent nail abnormality. Unsure if it is fungus versus Pseudomonas versus other etiology. Recommend another opinion with Podiatry. Referral to Dr. Sandoval and Guillermo provided. Patient will call and set her own appointment as true referral as needed Annual physical exam 03/15/2023 025 Assessment & Plan (03/20/2024 8:49 PM WHOLESALE BUYER): Encouraged healthy lifestyle, good nutrition and exercise. Encouraged Calcium and Vitamin D and weight bearing exercise for bone health. Reviewed immunizations Reviewed age appropirate screenings. Will plan a Pap smear with cervical cancer screening in the next few months Assessment & Plan (03/15/2023 10:13 AM WHOLESALE BUYER): Encouraged healthy lifestyle, good nutrition and exercise. Encouraged Calcium and Vitamin D and weight bearing exercise for bone health. Reviewed immunizations Reviewed age appropirate screenings. Patient would like to have Pap smear done in our office. Will set her up in 3-4 months. 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 Knee laceration, left, initial encounter 10/25/2017 03/15/2023 Overview (10/26/2017): Added automatically from request for surgery [id number] Encounters Date Type Department Care Team Description 06/23/2024 Results Follow-Up [address] [place] [phone] Hannah Winn PA 06/21/2024 3:00 PM WHOLESALE BUYER Office Visit [address] [place] [phone] Hannah Winn PA Encounter for routine gynecological [...] on file Legal Sex Female 9:39 PM WHOLESALE BUYER Gender Identity Not on file Sexual Orientation Not on file Obstetrics History Last Filed Vital Signs Vital Sign Reading Time Taken Comments Blood Pressure 102/72 06/21/2024 3:06 PM WHOLESALE BUYER Pulse 54 06/21/2024 3:06 PM WHOLESALE BUYER Temperature 37.2 C (99 F) 06/21/2024 3:06 PM WHOLESALE BUYER Respiratory Rate 18 07/13/2022 7:57 PM CDT Oxygen Saturation 99% 06/21/2024 3:06 PM WHOLESALE BUYER Inhaled Oxygen Concentration - - Weight 80.5 kg (177 lb 6.4 oz) 06/21/2024 3:06 P M WHOLESALE BUYER Height 167.6 cm (5' 6 ) 06/21/2024 3:06 PM WHOLESALE BUYER Body Mass Index 28.63 06/21/2024 3:06 PM WHOLESALE BUYER Plan of Treatment Health Maintenance Due Date [...] CT/NG, T VAGINALIS Routine 06/21/2024 3:56 PM WHOLESALE BUYER Screening examination for STD (sexually transmitted disease) PAP, REFLEX HPV Routine 06/21/2024 3:54 PM WHOLESALE BUYER Cervical cancer screening from Last 3 Months Results * SURESWAB(R), CT/NG, T VAGINALIS (06/21/2024 3:56 PM WHOLESALE BUYER) C. trachomatis RNA NOT DETECTED NOT DETECTED [facility] N. gonorrhoeae RNA NOT DETECTED NOT DETECTED [facility] Comment [facility] Nancy Comment: The analytical performance characteristics of this assay, when used to test SurePath(TM) specimens have been determined by [facility]. The modifications have not been cleared or approved by the FDA. This assay has been validated pursuant to the CLIA regulations and is used for clinical purposes. For additional information, please refer to https://[employer].DanceOn/faq/ZCA955 (This link is being provided for information/ educational purposes only.) Trichomonas vaginalis NOT DETECTED NOT DETECTED [facility]- Nancy Comment: For additional information, please refer to http://[employer].DanceOn/ faq/Trichomonastma (This link is being provided for informational/ educational purposes only.) Endocervical/vag inal 06/21/2024 3:56 PM WHOLESALE BUYER 06/23/2024 4:31 AM WHOLESALE BUYER Hannah [facility] BLOOD ORDERABLES Final Result [facility] [id number] [place] [address] * Pap, reflex HPV (06/21/2024 3:54 PM WHOLESALE BUYER) CLINICAL INFORMATION: Carlyn Shaw Comment:CERVICAL CANCER SCRE [...] has been evaluated with computer assisted technology. Groundsman Sergey Barnes Comment: MVB, CT(ASCP) CT Screening Location: [facility] [address] [address]orro [id number] Comment [facility]Keysha Shaw Comment: EXPLANATORY NOTE: The Pap is [...] clinical information. Thin prep 06/21/2024 3:54 PM WHOLESALE BUYER 06/23/2024 5:12 AM WHOLESALE BUYER us Hannah [facility] CYTOLOGY ORDERABLES nal Result [facility] [address] [address]AM[address] [place] [phone] from Last 3 Months Insurance [id number] [employer] Advance Directives For more information, please contact: [phone] * Full Code (Latest Code Status on File) Date Activated Date Inactivated Comments 10/26/2017 4:03 PM 10/28/2017 7:09 PM * Full Code Date Activated Date Inactivated Comments 10/26/2017 2:48 AM 10/26/2017 4:03 PM Care Teams Kaitara Taraka Relationship Specialty Start Date End Date Hannah Winn PA [address] [place] [address] PCP - General Internal Medicine 03/15/23
--- OUTSIDE RECORDS SUMMARY | 2024-08-09 10:03 | XMS_ITS | Clinical Summary ---
Author Organization [facility] Address [address] [place] [id number] Care Team Providers Care Ruffler Name Role Phone Unavailable Primary Care Provider [...]
[2024-08-09 10:28] VITALS: BP 112/66; PULSE 50; RESP 14; O2SAT 100
[2024-08-09 10:43] VITALS: BP 106/68; PULSE 60; RESP 16; O2SAT 100
== END 2024-08-09 10:44 | disposition home or self-care (01) ==
PROVIDERS: Emergency Provider Physician Assistant
DX: B34.9 Viral infection, unspecified (principal); Z20.822 Contact with and (suspected) exposure to COVID-19
CPT/HCPCS: 87637; 99283; A9270